=== PATIENT | male | born 1980 | race Two or more races ===

== ENCOUNTER 2016-06-29 09:41 | Emergency (ER) | payer MEDICAID ==
--- NOTE | 2016-06-29 10:10 | ED Physician Chart ---
Chief Complaint/HPI - Patient Information Date Seen:: 06/29/16 Time Seen:: 09:40 History of Present Illness:: chest pain ass with movement and deep breathing since yesterday. smoked meth and cigarettes with friends preceding evening, everybody else okay, 'didnt do much, about the same as always'. now mild low back pain with movement occasionally. Allergies:: Allergies Allergy/AdvReac Type Severity Reaction Status Date / Time No Known Allergies Allergy Verified 06/29/16 09:53 Review of Systems - Review of Systems General/Constitutional: No fever, No chills, No weakness, No diaphoresis, No edema, No loss of appetite Skin: No skin lesions, Rash Head: No headache, No light-headedness (chronic intermittant itchy face rash when cold weather) Eyes: No loss of vision ENT: No sore throat (bad tooth for months, needs extraction) Neck: No neck pain Cardio Vascular: Chest pain, No palpitations, No orthopnea, No edema Pulmonary: No SOB, No cough, No wheezing GI: No nausea, No vomiting G/U: No dysuria, No frequency, No hematuria Musculoskeletal: Back pain Psychiatric: Prior psych history Hematopoietic: No bruising Neurological: No syncope, No focal symptoms, No weakness, No headache, No dizziness Past Medical History - Past Medical History Past Medical History: No significant medical hx Family History: None Social History: Smoker, Illicit Drug Use (smokes meth occassionally), Psychiatricy History: None Medication: None Family Medical History - Family Member Mother Other Medical History: patient denies family medical history Physical Exam - Physical Examination General/Constitutional: Awake, Well-developed, well-nourished, Alert, No distress, Ambulatory Head: Atraumatic Eyes: Lids, conjuctiva normal (has eczematous facial skin rash, mild. poor dental hygiene), PERRL, EOMI Skin: No ecchymosis ENMT: TM canals nl, Nasal exam nl, Tonsils nl Neck: Nontender, Full ROM w/o pain, No JVD Respiratory: Clear to Auscultation, No Wheeze/Rhonchi/Rales (pulse 110, ST) Other Respiratory comments:: NOT clear on left side with poor BS, rales and rhonchi but pt uncooperative for 'deep breath'. no cough. Cardio Vascular: RRR (tachycardia with S3 gallop, no murmur), Carotid/Femoral/ Distal pulses equal bilaterally (no fam hx TAD) GI: No tenderness/rebounding/guarding, No organomegaly : No CVA tenderness Extremities: No tenderness or effusion, Full ROM, normal strength in all extremities, No edema, Normal digits & nails Neuro/Psych: Alert/oriented, Normal motor strength, Judgement/insight normal, Mood normal, No focal deficits Misc: Normal back, No paraspinal tenderness Labs/Radiology/EKG Results - Lab Results Results: trop <0.01 - EKG Interpretations EKG Time:: 09:50 Rhythm: ST Comments:: low voltage III, aVL, no evidence ACS. ED Septic Shock - . Is Septic Shock (SBP<90, OR Lactate>4 mmol\L) present?: No Reassessment (Disposition) - Reassessment Reassessment Condition:: Unchanged - Diagnosis Diagnosis:: 1)chest wall pain, suspect musculoskeletal. 2)hx methamphetamine abuse. 3) tobacco abuse. 4)eczema. 5)denatal caries. - Aftercare/Follow up Instructions Aftercare/Follow-Up Instructions:: Counseled pt regarding lab results/diagnosis & need follow up - Patient Disposition Discharge/Transfer:: Home (lengthy d/w pt about long health consequences of smoking, meth, dental caries.) ED Discharge Plan - Patient Disposition Instructions: Amphetamine Abuse, Chest Wall Pain, [id number] Accepting Physician: Marvin Hurley [Provisional Staff] -
== END 2016-06-29 11:05 | disposition home or self-care (01) ==
LOC: ER 09:41
DX: R07.89 Other chest pain (principal); L30.9 Dermatitis, unspecified; K02.9 Dental caries, unspecified; F17.200 Nicotine dependence, unspecified, uncomplicated; F15.10 Other stimulant abuse, uncomplicated
CPT/HCPCS: 36415-UA; 84484-TC; 93005

== ENCOUNTER 2017-01-01 00:30 | Emergency (ER) | payer MEDICAID ==
--- NOTE | 2017-01-01 00:54 | ED Physician Chart ---
Chief Complaint/HPI - Patient Information Date Seen:: 01/01/17 Time Seen:: 00:30 Chief Complaint:: Left Eye Redness History of Present Illness:: onset x 3 days of left eye redness and left lower eye growth; pt denies eye pain ,; no visual changes; last tetanus shot: < 5 years; UTD; pt denies H/As, E/As, S /T, Neck pain, C/P, SOB, Abd. Pain, A/N/V/D/C, fever, chills, or urinary s/s Allergies:: Allergies Allergy/AdvReac Type Severity Reaction Status Date / Time No Known Allergies Allergy Verified 06/29/16 09:53 Vitals:: Vital Signs - 8 hr 01/01/17 00:30 Temp 98.6 F HR 96 RR 17 BP 152/97 O2 Sat % 98 Historian:: Patient Review:: Nurse's Note Reviewed Review of Systems - Review of Systems General/Constitutional: No fever, No chills, No weight loss, No weakness, No diaphoresis, No edema, No loss of appetite Skin: Skin lesions, Rash, No bruising Head: No headache, No light-headedness Eyes: No loss of vision, No pain, No diplopia, Other (eye redness) ENT: No earache, No nasal drainage, No sore throat, No tinnitus Neck: No neck pain, No swelling, No thyromegaly, No stiffness, No mass noted Cardio Vascular: No chest pain, No palpitations, No PND, No orthopnea, No edema Pulmonary: SOB, Cough, No sputum, Wheezing GI: No nausea, No vomiting, No diarrhea, No pain, No melena, No hematochezia, No constipation, No hematemesis G/U: No dysuria, No frequency, No hematuria Musculoskeletal: No bone or joint pain, No back pain, No muscle pain Endocrine: No polyuria, No polydipsia Psychiatric: No prior psych history, No depression, No anxiety, No suicidal ideation Hematopoietic: No bruising, No lymphadenopathy Allergic/Immuno: No urticaria, No angioedema Neurological: No syncope, No focal symptoms, No weakness, No paresthesia, No headache, No seizure, No dizziness, No confusion, No vertigo Past Medical History - Past Medical History Obtainable: Yes Past Medical History: Asthma/COPD Family History: HTN Social History: Non Smoker, No Alcohol, No Drug Use, Single Surgical History: None Psychiatricy History: None Medication: Reviewed Family Medical History - Family Member Mother Ethnicity: Physical Exam - Physical Examination General/Constitutional: Awake, Well-developed, well-nourished, Alert, No distress, GCS 15, Non-toxic appearing, Ambulatory Head: Atraumatic Eyes: Lids, conjuctiva normal, PERRL, EOMI Other Eyes comments:: Va: 20/20 OU; Left Eye: + Conjunctival Injection; no FBs; no abrasions; no corneal FBs; + Left Lower Eyelid Sty/Hordelum/Chalzion; no FBs; no discharge; PERRLA; Fundi: benign; EOMs: WNL Skin: Nl inspection, No rash, No skin lesions, No ecchymosis, Well hydrated, No lymphadenopathy ENMT: External ears, nose nl, Nasal exam nl, Lips, teeth, gums nl Neck: Nontender, Full ROM w/o pain, No JVD, No nuchal rigidity, No bruit, No mass, No stridor Respiratory: Nl effort/Exclusion, Clear to Auscultation, No Wheeze/Rhonchi/Rales Cardio Vascular: RRR, No murmur, gallop, rubs, NL S1 S2 GI: No tenderness/rebounding/guarding, No organomegaly, No hernia, Normal BS's, Nondistended, No mass/bruits, No McBurney tenderness : No CVA tenderness Extremities: No tenderness or effusion, Full ROM, normal strength in all extremities, No edema, Normal digits & nails Neuro/Psych: Alert/oriented, DTR's symmetric, Normal sensory exam, Normal motor strength, Judgement/insight normal, Mood normal, Normal gait, No focal deficits Misc: normal gait, Normal back, No paraspinal tenderness ED Septic Shock - . Is Septic Shock (SBP<90, OR Lactate>4 mmol\L) present?: No - <6hrs of presentation: Vital Signs: Vital Signs - 8 hr 01/01/17 00:30 Temp 98.6 F HR 96 RR 17 BP 152/97 O2 Sat % 98 Reassessment (Disposition) - Reassessment Reassessment:: pt is comfortable/asymptomatic upon discharge Reassessment Condition:: Improved - Diagnosis Diagnosis:: Dx: Red Eye; Left Conjunctivitis; Left Eyelid Sty/Hordelum/Chalzion - Aftercare/Follow up Instructions Aftercare/Follow-Up Instructions:: Counseled pt regarding lab results/diagnosis & need follow up, Refer to Discharge Instructions, Counseled pt & family regarding lab results/diagnosis & need follow up Medication Prescribed:: Rx: Keflex 500mg po qid x 10 days; Tobramycin Ophthalmic Eye Drops: one drop to left eye qid x 7 days; Warm Compresses to left eyelid Sty - Patient Disposition Discharge/Transfer:: Home Condition at Disposition:: Stable, Improved (RTER prn if existing s/s reoccur and/or get worse and/or any other new s/s occur; ACIs given for all above Dx; Refer to Deputy Sheriff Generalist JUAN JOSE; F/U with PMD in one day or prn; RTER prn if concerned) ED Discharge Plan - Patient Disposition Instructions: Sty Additional Instructions: follow up with your primary medical doctor in 2-3 days if not getting better take prescribed medications as ordered
== END 2017-01-01 00:50 | disposition home or self-care (01) ==
LOC: ER 00:30
DX: H10.9 Unspecified conjunctivitis (principal); J44.9 Chronic obstructive pulmonary disease, unspecified; J45.909 Unspecified asthma, uncomplicated; I10 Essential (primary) hypertension
CPT/HCPCS: Z7502